=== PATIENT | female | born 2000 | race Caucasian/White ===

== ENCOUNTER 2023-10-18 06:36 | Day surgery (SDC) | payer OTHER, SELFPAY ==
[2023-10-17 11:51] VITALS: BMI 31.6
[2023-10-18 06:55] VITALS: BP 125/76; PULSE 90; RESP 16; TEMP 36.4; O2SAT 96; BMI 31.6
[2023-10-18] MEDS: LACTATED RINGERS 1,000 ML 42 ML IV (06:58)
--- NOTE | 2023-10-18 07:29 | SUR.PREOP ---
heart tones 124. Assessed by L&D Nursing staff at bedside.
--- NOTE | 2023-10-18 07:30 | SUR.OPER ---
Lithotomy on padded OR bed, head on pillow, arms secured on padded arm boards at <90 degrees abduction. Legs secured in padded yellow fins stirrups.
--- NOTE | 2023-10-18 07:35 | PM.PREOP ---
Pre-operative Note COVID-19 COVID-19 status: Not tested Interval Note History & Physical reviewed/Exam performed by Physician: Yes Changes to H&P: No
[2023-10-18] MEDS: CEFAZOLIN 2 GM/100 ML PREMIX 100 ML IV (07:56)
[2023-10-18] MEDS: BUPIVACAINE 0.5% (PF) 30 ML, EPINEPHrine 0.15 MG INJ (08:21)
[2023-10-18 08:57] VITALS: BP 97/60; PULSE 88; RESP 16; TEMP 36.8; O2SAT 98
[2023-10-18 09:06] VITALS: BP 97/61; PULSE 73; RESP 15; O2SAT 98
[2023-10-18 09:09] VITALS: BP 103/73; PULSE 78; RESP 16; O2SAT 98
[2023-10-18 09:11] VITALS: BP 103/73; PULSE 80; RESP 16; TEMP 36.2; O2SAT 98
--- NOTE | 2023-10-18 09:15 | P.OP_ITS ---
Operative Date/Time/Diagnoses Date of procedure: 10/18/23 Time of procedure: 07:50 Pre-op diagnosis: Right Bartholin's gland abscess Post-op diagnosis: other (Right perianal abscess) Procedure & Clinicians Procedure: Procedures Operation Date: 10/18/23 07:45 Actual Procedure Side Surgeon p Incision and drainage of right perianal abscess Yung Loyd MD Indications: Rhina is a 23 yo at @ 12 wks EGA who was seen earlier this week regarding her right-sided Bartholin's gland cyst/abscess. Patient has had prior attempts at I and D in the emergency department and Word catheter insertion in office which remain in place for only 1 day following insertion. Since then she has had another attempt at I and D which was unsuccessful and presents today for further evaluation and treatment as the cyst is enlarging and becoming increasingly painful. After discussion with the patient regarding all options for further evaluation and treatment of the Bartholin's gland abscess, the decision was made to perform marsupialization in the operating room rather than attempt another in-office Word catheter placement. She presents today for her scheduled surgery. Surgeon: Yung Loyd Anesthesia Type: General Operative Notes Findings: What was thought to be a Bartholin's gland abscess on the right side was actually a perianal/perirectal abscess which pointed toward the inferior aspect of the right labia majora. Exam under anesthesia following drainage of the abscess cavity revealed extensive induration deep to the abscess creating a masslike effect and on rectal exam purulent material was found to be coming from the rectum as well. General surgery consult was obtained intraoperatively and the patient was examined by Dr. Ervin daugherty with the diagnosis of perianal/perirectal abscess. The abscess cavity was fully drained and loosely packed with a 1/2 inch iodoform gauze. Closure Type: not applicable Specimen(s): other (Culture and sensitivity of purulent abscess fluid) Estimated blood loss (mL): 20 Blood products transfused: none Procedure in detail: With the patient under satisfactory general anesthesia in the modified dorsal lithotomy position the perineum, vagina, lower abdomen were prepped and draped in usual manner for Bartholin's gland marsupialization. The area overlying the most superficial aspect of the abscess was infiltrated with 0.5% Marcaine with epinephrine and an elliptical incision was made so as to unroof the abscess cavity itself. Once that had been performed, the cavity was incised with a 11. Blade resulting in the drainage of a large amount of necro-purulent material. Because the abscess cavity was atypical for Bartholin's gland rectal exam was performed which showed additional amounts of necro-purulent material and intraoperative surgical consult was obtained. Dr. Ervin Aguilar examined the patient under anesthesia and confirmed the diagnosis of a perianal/perirectal abscess. Half-inch iodoform gauze was then packed into the abscess cavity and 2 3-0 Monocryl interrupteds were used to reduce the size of the incision to less than 1 cm. The operation was then terminated by waking the patient and transfer the patient to PACU for a period of observation and recovery having tolerated procedure well. Complications: other (Preop diagnosis found to be incorrect at time of surgery) Post-operative Condition: stable Disposition: PACU Plan for aftercare: Routine postoperative care with plans for General surgery follow-up in 1 week postop and follow-up with LATHE MACHINE OPERATOR in 2 weeks.
[2023-10-18 09:21] VITALS: BP 100/65; PULSE 78; RESP 16; TEMP 36.6; O2SAT 98
--- NOTE | 2023-10-18 10:13 | SUR.PHASEII ---
PATIENT BLADDER SCANNED FOR 877. STRAIGHT CATH FOR 850 PER PHYSICIAN ORDER. PATIENT TOLERATED PROCEDURE WELL.
== END 2023-10-18 10:15 | disposition home or self-care (01) ==
PROVIDERS: PCP Family Medicine; Referring Provider Obstetrics & Gynecology; Visit Provider Obstetrics & Gynecology
PROC: (CPT 56440; principal; 2023-10-18 07:45)
DX: K61.1 Rectal abscess (principal); Z33.1 Pregnant state, incidental
CPT/HCPCS: 45005; 87070; 87077; 87147; 87186; 87205; J0171; J0690; J1100; J1885; J2405; J2704; J3010

== ENCOUNTER → 2023-12-11 15:17 | Outpatient (CLI) | payer OTHER, SELFPAY ==
--- NOTE | 2023-12-11 | DI.US.S_ITS ---
PROCEDURE: US OB >= 14 WEEKS FETUS INDICATIONS: ANATOMY OUTSIDE/PRIOR DATING DATA: Last menstrual period (LMP): 06/19/2023. LMP-based estimated date of delivery (EFREM): 04/25/2024. First dating scan (date and location): 12/11/2023. Estimated date of delivery (EFREM) from first dating scan: 04/23/2024. The calculations are made using the clinical EFREM of 04/25/2024. TECHNIQUE: Real-time scanning was performed of the fetus, with image documentation and biometric measurements. COMPARISON: None. FINDINGS: General: A single living intrauterine gestation is present. Presentation: Breech. Placenta: Placental position is posterior , without previa. Amniotic fluid index: 15.4 cm, normal range is 5-24 cm. Single deepest vertical pocket is 5.2 cm. heart rate: 147 beats per minute. Maternal cervical canal: 4.5 cm long. Normal lower limit is 2.5 cm. biometrics: Biparietal diameter: 4.9 cm 20 weeks 5 days Head circumference: 17.9 cm 20 weeks 3 days Abdominal circumference: 16.0 cm 21 weeks 1 day Femur length: 3.6 cm 21 weeks 2 days Clinically estimated gestational age: 20 weeks 4 days Composite gestational age from present scan: 20 weeks 6 days Estimated weight and percentile: 400 g, 75th percentile Anatomic survey: Neuro: Ventricles are non-dilated at less than 10 mm. Cisterna magna is normal at 3-11 mm. Cerebellum is normal in size and morphology. Nuchal skin fold: Normal at less than 6 mm between 14-21 weeks gestational age. Face: Nose and lips, facial profile are normal. Spine: No evidence for spina bifida. Heart: 4-chambered heart and ventricular outflow tracts are suboptimally evaluated. Diaphragm: Diaphragm is intact. Stomach: Left-sided stomach is present. Kidneys: No hydronephrosis. Normal is less than 5 mm in 2nd trimester, less than 7 mm in 3rd trimester. Cord: 3-vessel cord has orthotopic insertion. Bladder: Normal in size. Extremities: All 4 extremities identified. IMPRESSION: Single live intrauterine with gestational age today of 20 weeks 6 days. 4 chambered heart/outflow tracts are suboptimally evaluated. Recommend short interval imaging follow-up. We strive to produce accurate, complete, and clear reports of imaging services. To assist us in improving patient care, this report was composed using standard report templates and voice recognition software. Therefore, it may contain abnormal punctuation, insertions and/or omissions. Occasional wrong-word or sound-alike substitutions may occur. Though we review the report and make efforts to correct it, we do recommend that the report be read carefully in proper context to recognize any text inaccuracies. Dictated by: Susy Bowers M.D. on 12/12/2023 at 13:29 Approved by: Susy Bowers M.D. on 12/12/2023 at 13:32
== END ==
LOC: US 15:17
PROVIDERS: PCP Family Medicine; Referring Provider Nurse Practitioner Obstetrics & Gynecology; Visit Provider Nurse Practitioner Obstetrics & Gynecology
DX: Z34.92 Encounter for supervision of normal pregnancy, unspecified, second trimester (principal); Z3A.20 20 weeks gestation of pregnancy
CPT/HCPCS: 76811

== ENCOUNTER → 2023-12-28 16:14 | Outpatient (CLI) | payer OTHER, SELFPAY ==
--- NOTE | 2023-12-28 16:15 | DI.US.S_ITS ---
PROCEDURE: US OB FOLLOW UP INDICATIONS: FOLLOW UP ANATOMY SCAN OUTSIDE/PRIOR DATING DATA: Last menstrual period (LMP): 07/20/2023. LMP-based estimated date of delivery (EFREM): 04/25/2024. Working EFREM is 04/25/2024 TECHNIQUE: Real-time scanning was performed of the fetus, with image documentation. COMPARISON: [facility], US, OB >= 14 WEEKS FETUS, 12/11/2023, 15:44. FINDINGS: A single living intrauterine gestation is present. Presentation: Variable. Placenta: Placental position is posterior, without previa. Amniotic fluid index: 14.4 cm, normal range is 5-24 cm. Single deepest vertical pocket is 4.5 cm. heart rate: 125 beats per minute. Maternal cervical canal: 4.7 cm long. Normal lower limit is 2.5 cm. Current gestational age is 23 weeks based on working EFREM The heart remains suboptimally visualized due to body habitus. There is no gross abnormality identified. IMPRESSION: cardiac structures remain suboptimally visualized due to body habitus. No gross abnormality is detected. Normal JACEY. Living intrauterine gestation at 23 weeks. Dictated by: Ridge Centeno M.D. on 12/29/2023 at 11:07 Approved by: Ridge Centeno M.D. on 12/29/2023 at 11:10
== END ==
PROVIDERS: PCP Family Medicine; Referring Provider Advanced Practice Midwife; Visit Provider Advanced Practice Midwife
DX: Z34.92 Encounter for supervision of normal pregnancy, unspecified, second trimester (principal); Z3A.23 23 weeks gestation of pregnancy
CPT/HCPCS: 76816

== ENCOUNTER 2024-01-21 05:10 | Emergency (ER) | payer OTHER, SELFPAY ==
[2024-01-21 05:20] VITALS: BP 116/65; PULSE 89; RESP 18; TEMP 36.6; O2SAT 100; BMI 32.1
--- NOTE | 2024-01-21 05:57 | ED_ITS ---
HPI - General Adult General Chief complaint: Upper Respiratory Symptoms Stated complaint: chest, back and arm pain Time Seen by Provider: 01/21/24 05:55 Source: patient Mode of arrival: Ambulatory Limitations: no limitations History of Present Illness HPI narrative: This is a 23-year-old female who is 26 week and 3 days with history of hypothyroidism who presents with nasal congestion, cough, for the past several days. Patient states she woke up this morning felt a little tight in her chest in her arms just felt really tired. She states she does not have any shortness of breath. No syncope. No nausea or vomiting, no diarrhea constipation no urinary symptoms she has not had any increased swelling in extremities. She did take a Tums without any improvement of symptoms. She states no fevers that she is aware of. She is otherwise been healthy with no other complications in her . She denies any abdominal pain. She states she has been feeling baby move regularly. Patient is on aspirin daily for her . She states no prior surgeries. No known drug allergies. No tobacco, alcohol or recreational drugs. She is accompanied by her . Related Data Home Medications Medication Instructions Recorded Confirmed levothyroxine 50 mcg capsule 50 mcg PO .qod 10/13/21 12/19/23 levothyroxine 75 mcg capsule 75 mcg PO .qod 10/13/21 12/19/23 clindamycin phosphate 1 % lotion 1 applic topical BID 12/04/23 12/19/23 Allergies Allergy/AdvReac Type Severity Reaction Status Date / Time No Known Drug Allergies Allergy Verified 12/19/23 16:15 Review of Systems Review of Systems ROS Unobtainable: All systems reviewed & are unremarkable except as noted in HPI and below Patient History Medical History History of atypical skin mole Rosacea (~2011) Acne (~2011) Allergies Hemorrhoid (~2015) Anxiety (~2013) Shoulder pain (~2013) Foot pain (~2017) Hypothyroidism (~2015) Surgical History Perianal abscess (~2023) Anesthesia [place] teeth removed (~06/2019) Family History Mother COPD (chronic obstructive pulmonary disease) Mental health problem Sister Sleep apnea Social History household members: spouse Smoking Status: Never smoker Smoking Status: Never smoker alcohol intake frequency: holidays/special occasions only Substance Use Type: does not use Exam Narrative Exam Narrative: GEN: well nourished, well appearing female, alert and oriented x 3, patient appears to be in mild distress. HEENT: Atraumatic, pupils are equal round reactive to light, extraocular movements are intact, nares bilateral clear, TMs are clear with no fluid, tract bilaterally, there is no conjunctival pallor. Throat is clear without any exudates, erythema, tonsillar enlargement or uvular deviation, patient does have some postnasal drip. HEART: Regular rate and rhythm without murmur, clicks, rubs. No swelling bilateral upper extremities. LUNGS:Lungs clear to auscultation, no wheezes, rales, crackles, chest moves symmetrically ABD:bowel sounds normal, soft, gravid, non-tender, no guarding, rebound, rigidity, no masses noted, no hepatosplenomegaly :No CVA tenderness MSCL: Non-tender, no edema bilaterally, full range of motion, normal gait NEURO:CN 2-12 intact, sensation normal Initial Vital Signs Initial Vital Signs: Vital Signs Temperature 98 F 01/21/24 05:20 Pulse Rate 89 01/21/24 05:20 Respiratory Rate 18 01/21/24 05:20 Blood Pressure 116/65 01/21/24 05:20 Pulse Oximetry 100 01/21/24 05:20 Oxygen Delivery Method Room Air 01/21/24 05:20 Course Orders Ordered: Discontinued Medications Acetaminophen (Acetaminophen 325 Mg Tablet) 650 mg PO NOW ONE Stop: 01/21/24 06:18 Last Admin: 01/21/24 06:37 Dose: Not Given Documented By: GENNARO Sodium Chloride (Normal Saline 0.9%) 1,000 mls @ 1,000 mls/hr IV BOLUS ONE Stop: 01/21/24 07:16 Last Admin: 01/21/24 06:38 Dose: Not Given Documented By: GENNARO Vital Signs Vital signs: Vital Signs - 8 hr 01/21/24 05:20 Temperature 98 F Pulse Rate 89 Respiratory Rate 18 Blood Pressure 116/65 Pulse Oximetry 100 Oxygen Delivery Method Room Air Medical Decision Making Lab Data Labs: Lab Results 01/21/24 Range/Units 05:24 Chlamy pneumoniae PCR Not detected (Not Detect) Adenovirus (PCR) Not detected (Not Detect) B.parapertussis DNA PCR Not detected (Not Detecte) Coronavirus OC43 (PCR) Not detected (Not Detect) Coronavirus HKU1 (PCR) Not detected (Not Detect) Coronavirus 229E (PCR) Not detected (Not Detect) SARS-CoV-2 (PCR) Not detected (Not Detecte) Coronavirus NL63 (PCR) Not detected (Not Detect) Human Metapneumovir PCR Detected H (Not Detect) Influenza Type A (PCR) Not detected (Not Detect) Influenza Type B (PCR) Not detected (Not Detect) M. pneumoniae (PCR) Not detected (Not Detect) Parainfluenza 1 (PCR) Not detected (Not Detect) Parainfluenza 2 (PCR) Not detected (Not Detect) Parainfluenza 3 (PCR) Not detected (Not Detect) Parainfluenza 4 (PCR) Not detected (Not Detect) RSV (PCR) Not detected (Not Detect) Entero/Rhino (PCR) Not detected (Not Detect) MDM Narrative Medical decision making narrative: 23-year-old female with symptoms seem most consistent with viral upper respiratory infection who is , but patient did develop some chest tightness discomfort today. Her lung exam is clear with no crackles wheezes or rales. She does sound congested nasally. Patient does not have any reproducible chest pain. Initial vitals are appropriate, no hypertension. She is some increased risk factors secondary to I think this is likely related to her infection but after discussion we will proceed with chest x-ray but shielding, EKG labs and respiratory panel. Patient's respiratory panel is positive for human metapneumovirus. Patient after this return would like to hold off on further workup. We discussed risks versus benefits. This is likely secondary to viral infection but did discuss she has some increased risks. Patient elects to return home discussed she can return at any time for re-evaluation. Discharge Plan Departure Patient Disposition: Home Clinical Impression: Infection due to human metapneumovirus (hMPV) Activity Restrictions/Additional Instructions: You have tested positive for human metapneumovirus, this is a viral illness that typically last 7-10 days. You can take Tylenol up to a 1000 mg every 6 hours as needed for pain. You have new or worsening chest pain, shortness of breath, lightheadedness or passing out, new swelling in her extremities, persistent vomiting, new abdominal back or flank pain or other new or concerning changes please return for evaluation. Prescriptions: No Action clindamycin phosphate 1 % lotion 1 applic topical BID levothyroxine 50 mcg capsule 50 mcg PO .qod levothyroxine 75 mcg capsule 75 mcg PO .qod Referrals: Helga Pereira DO [Primary Care Provider] - Stand Alone Forms: Patient Portal/API
[2024-01-21 06:16] LABS: Adenovirus Not Detected (Not Detect); B. parapertussis Not Detected (Not Detecte); Bordetella pertussis Not Detected (Not Detect); Chlamydophila pneumoniae Not Detected (Not Detect); Coronavirus 229E Not Detected (Not Detect); Coronavirus HKU1 Not Detected (Not Detect); Coronavirus NL 63 Not Detected (Not Detect); Coronavirus OC43 Not Detected (Not Detect); Human Metapneumovirus Detected (Not Detect); Human Rhinovirus/Enterovirus Not Detected (Not Detect); Influenza A Not Detected (Not Detect); Influenza B Not Detected (Not Detect); Mycoplasma pneumoniae Not Detected (Not Detect); Parainfluenza Virus 1 Not Detected (Not Detect); Parainfluenza Virus 2 Not Detected (Not Detect); Parainfluenza Virus 3 Not Detected (Not Detect); Parainfluenza Virus 4 Not Detected (Not Detect); Respiratory Syncytial Virus Not Detected (Not Detect); SARS- CoV-2 Not Detected (Not Detecte)
[2024-01-21 06:44] VITALS: BP 110/66; PULSE 76; RESP 16; O2SAT 100
== END 2024-01-21 06:47 | disposition home or self-care (01) ==
PROVIDERS: Emergency Provider Emergency Medicine; PCP Family Medicine
DX: O98.512 Other viral diseases complicating pregnancy, second trimester (principal); B97.81 Human metapneumovirus as the cause of diseases classified elsewhere; Z3A.26 26 weeks gestation of pregnancy
CPT/HCPCS: 87633; 99282; 99283

== ENCOUNTER → 2024-02-04 08:31 | Outpatient (CLI) | payer OTHER, SELFPAY ==
[2024-02-04 09:33] LABS: Glucose Fasting 81 mg/dL (70-100)
[2024-02-04 10:58] LABS: Glucose 1 Hour 124 mg/dL (70-170)
[2024-02-04 11:32] LABS: Glucose 2 Hour 96 mg/dL (70-140)
[2024-02-04 11:34] LABS: Glucose Tol Interpretation INTERPRETATION
[2024-02-04 12:21] LABS: Glucose 3 Hour 103 mg/dL (70-115)
== END ==
LOC: LAB 08:32
PROVIDERS: PCP Family Medicine; Referring Provider Nurse Practitioner Obstetrics & Gynecology; Visit Provider Nurse Practitioner Obstetrics & Gynecology
DX: Z34.90 Encounter for supervision of normal pregnancy, unspecified, unspecified trimester (principal); Z13.1 Encounter for screening for diabetes mellitus; Z3A.26 26 weeks gestation of pregnancy
CPT/HCPCS: 36415; 82951; 82952

== ENCOUNTER 2024-05-02 15:24 | Outpatient (CLI) | payer OTHER, SELFPAY ==
--- NOTE | 2024-05-02 15:34 | DI.US.S_ITS ---
PROCEDURE: US OB BIOPHYSICAL PROFILE INDICATIONS: Non-reasurring FHTs OUTSIDE/PRIOR DATING DATA: Last menstrual period (LMP): 07/20/2023. LMP-based estimated date of delivery (EFREM): 04/25/2024. TECHNIQUE: Real-time scanning was performed of the fetus for biophysical profile, with image documentation. Color and pulse Doppler interrogation was also performed of the umbilical artery near its insertion into the placenta. Endovaginal scanning: Not performed COMPARISON: Located within [facility], OB FOLLOW UP, 12/28/2023, 16:50. FINDINGS: General: A single living intrauterine gestation is present. Presentation: Vertex Placenta: Placental position is left/fundal , without previa. Amniotic fluid index: 16.4 cm, normal range is 5-24 cm. Single deepest vertical pocket is 6.9 cm. heart rate: 139 beats per minute. Maternal cervical canal: Not well seen Clinically estimated gestational age: 41 weeks, 0 days Biophysical profile: Tone: 2 points. Movement: 2 points. Respiration: 2 points. Largest pocket of fluid: 2 points. Umbilical artery Doppler: 1.9, 2.0, 2.0 IMPRESSION: Single live intrauterine consistent with 41 weeks and 0 days. Normal biophysical profile. Normal umbilical artery Doppler. We strive to produce accurate, complete, and clear reports of imaging services. To assist us in improving patient care, this report was composed using standard report templates and voice recognition software. Therefore, it may contain abnormal punctuation, insertions and/or omissions. Occasional wrong-word or sound-alike substitutions may occur. Though we review the report and make efforts to correct it, we do recommend that the report be read carefully in proper context to recognize any text inaccuracies. Dictated by: Mack Gonzalez M.D. on 05/02/2024 at 16:35 Approved by: Mack Gonzalez M.D. on 05/02/2024 at 16:38
== END 2024-05-02 16:25 | disposition home or self-care (01) ==
LOC: OB 05-05 06:38
PROVIDERS: PCP Family Medicine; Referring Provider Nurse Practitioner Obstetrics & Gynecology; Visit Provider Nurse Practitioner Obstetrics & Gynecology
DX: O36.8130 Decreased fetal movements, third trimester, not applicable or unspecified (principal); O48.0 Post-term pregnancy; Z3A.41 41 weeks gestation of pregnancy
CPT/HCPCS: 59025; 76819; G0378; G0379

== ENCOUNTER 2024-05-04 02:02 | Inpatient (IN) | payer OTHER, SELFPAY ==
--- NOTE | 2024-05-04 02:37 | PM.OBTRLD ---
Visit Information Visit Information Date of evaluation: 05/04/24 Primary OB Provider: Dina Burgess On-call OB Provider: Dina Burgess Reason for Evaluation: Yes rupture of membranes Comments/Additional reasons for admission: 24YO @ 41weeks 2 days by sure LMP concordant with 10wk US presents for evaluation of contractions and suspected ROM. Has been feeling irregular contractions all night and noticed occasional small gushes of fluid since 10pm. +FM. No vaginal bleeding. Coping well. 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 Accompanied by her supportive , Jose. Vital Signs Vital Signs: BP 113/66, HR 74, T 35.8C Temporal PFSH Medical History History of atypical skin mole Rosacea (~2011) Acne (~2011) Allergies Hemorrhoid (~2015) Anxiety (~2013) Shoulder pain (~2013) Foot pain (~2017) Hypothyroidism (~2015) Surgical History Perianal abscess (~2023) Anesthesia [place] teeth removed (~06/2019) Family History Mother COPD (chronic obstructive pulmonary disease) Mental health problem Sister Sleep apnea Social History household members: spouse Smoking Status: Never smoker Review of Systems Review of Systems ROS: Yes All systems reviewed with the patient and are negative except as otherwise documented Exam Vital Signs (past 8 hours): see above Presentation: vertex Amniotic Fluid: clear Evaluation Evaluation Baseline heart rate: 125 Variability: Moderate (11-25) monitor accelerations: Present Monitor Decelerations: Absent Contraction Frequency (minutes): 8 Non-invasive Membranes Rupture Test: positive Comments: CE deferred Diagnosis, Plan/Disposition Final Diagnosis (1) PROM (premature rupture of membranes): Status: Acute Plan/Disposition Plan: Counseled on PROM and options for active vs expectant management with review of risks and benefits of each. Patient elected expectant management and agrees to check in around 10am (ROM x 12 hours) by phone or sooner, if contractions strengthen. OB Disposition: home
--- NOTE | 2024-05-04 06:58 | P.HPOB_ITS ---
OB HPI Date/Time Date of admission: 05/04/24 Date Patient Seen: 05/04/24 History of Present Condition Chief complaint: check up/poss water broke : 1 Para: 0 Narrative: 24YO @ 41weeks 2 days by sure LMP concordant with 10wk US presents for repeat evaluation of contractions w/ PROM @ 2200 last night. Was seen in triage last night with confirmed ROM and reactive NST. She elected expectant management of PROM and went home where things intensified quickly. +FM. No vaginal bleeding. Coping well. 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 Accompanied by her supportive , Jose. History of Present care: good care, initiated at week # (6) and number of visits (13) Dating criteria: LMP confirmed by 1st trimester US Ultrasounds: normal mid trimester US Obstetrical complications: none Medical complications: other (perianal fistula) Preadmission Labs Blood type: 0 (-) negative -: Antibody screen: negative, GBS status: negative, HBsAG: negative, HIV: negative and RPR/VDLR: negative -: Chlamydia screen: not detected and Gonorrhea screen: not detected -: Rubella: immune and Varicella: immune HCT: 34 HCAB: negative Cell-free DNA: Negative, XY 1 hr GTT: 152 3 hr GTT: 1 hr (124), 2 hr (96) and 3 hr (123) Fasting blood glucose: 81 Evaluation Evaluation Baseline heart rate: 125 Variability: Moderate (11-25) monitor accelerations: Absent Monitor Decelerations: Early and Variable Contraction Frequency (minutes): 2 (2-3) Uterine Contraction Intensity: Strong/Firm Status: Category ll Dilation (cm): 5 Effacement (%): 90 Dilation: >/=5 cm Effacement: >/=80% station: -1 Position of cervix: posterior Consistency: soft Peña score: 10 Comments: Continues to leak clear fluid [facility] Medical History History of atypical skin mole Rosacea (~2011) Acne (~2011) Allergies Hemorrhoid (~2015) Anxiety (~2013) Shoulder pain (~2013) Foot pain (~2018) Hypothyroidism (~2015) Surgical History Perianal abscess (~2023) Anesthesia [place] teeth removed (~06/2019) Family History Mother COPD (chronic obstructive pulmonary disease) Mental health problem Sister Sleep apnea Social History household members: spouse Smoking Status: Never smoker Meds Home Medications and Allergies Home Medications Medication Instructions Recorded Confirmed Type levothyroxine 75 mcg capsule 75 mcg PO .qod 10/13/21 05/04/24 History clindamycin phosphate 1 % lotion 1 applic topical BID 12/04/23 05/04/24 History Allergies Allergy/AdvReac Type Severity Reaction Status Date / Time No Known Drug Allergies Allergy Verified 12/19/23 16:15 Review of Systems Review of Systems ROS: Yes All systems reviewed with the patient and are negative except as otherwise documented OB Exam Resp Effort & Inspection: normal respiratory effort and able to speak in complete sentences Auscultation: clear to auscultation bilaterally Cardio Rate: regular rate Rhythm: regular rhythm Presentation: vertex Amniotic Fluid: clear Objective Labs 05/04/24 07:50 Assessment and Plan Assessment and Plan Assessment and Plan narrative: A: Late Term Nulipara Active Labor SROM x 9 hours without sx of infection Antibiotics not indicated Perianal fistula Cat II FHR P: Admit, routine orders. Expectant management of labor. Labor support PRN. Continuous EFM for now. Reassess in 4 hours or sooner, PRN. Time-Based Coding :: [TOTAL MINUTES] spent with patient and on the chart (including review of chart, obtaining history, exam, reviewing outside data, placing orders, documenting exam and treatment plan, and counseling patient) on [DATE].
[2024-05-04] MEDS: LACTATED RINGERS 1,000 ML 100 ML IV ×3 (08:00→17:43)
[2024-05-04 08:05] LABS: Add Manual Diff / Slide Review NO; Basophils Absolute Auto 100 /uL (0-100); Basophils Percent Auto 0.6 % (0-2); Eosinophils Absolute Auto 100 /uL (0-450); Eosinophils Percent Auto 0.9 % (2-4); Hematocrit 37.8 % (36-46); Hemoglobin 13.1 g/dL (12.0-16.0); Lymphocytes Absolute Auto 1200 /uL (1100-4500); Lymphocytes Percent Auto 10.9 % (25-40); Mean Corpuscular HGB Conc 34.7 % (30-36); Mean Corpuscular Hemoglobin 32.6 PG (26-34); Monocytes Absolute Auto 600 /uL (0-900); Monocytes Percent Auto 5.7 % (3-14); Neutrophils Absolute Auto 8700 /uL (1500-7000); Neutrophils Percent Auto 81.9 % (50-75); Platelet Count 205 X10^3/uL (150-400); Red Blood Cell Count 4.02 X10^6/uL (4.0-5.2); Red Cell Distribution Width 13.6 % (11.6-14.8); White Blood Cell Count 10.6 X10^3/uL (4.5-11.0)
--- NOTE | 2024-05-04 09:22 | PM.AN.REGBLK ---
Regional Block Pre-procedure Procedure: Continuous Lumbar Epidural for L&D Attending OB provider: Dina Burgess PMH/ROS narrative: G1PO. Spontaneous labor, dil 5cm, membranes ruptured. PSH/Anesthesia history narrative: Unremarkable Exam narrative: Mall 2, good dentition ASA Class: II Labs: Hct 37.8 % (36-46) 05/04/24 07:50 Plt Count 205 X10^3/uL (150-400) 05/04/24 07:50 Medications: Current Medications Generic Name Dose Route Start Last Admin Trade Name Freq PRN Reason Stop Dose Admin Calcium Carbonate 1,000 mg 05/04/24 06:55 Calcium Carbonate 500 Mg Tab PO Q2HR PRN Dyspepsia Carboprost Tromethamine 250 mcg 05/04/24 06:55 Carboprost 250 Mcg/Ml Ampul IM Q90M PRN Bleeding Fentanyl 100 mcg 05/04/24 06:55 Fentanyl 100 Mcg/2 Ml Inj IV Q1H PRN Pain, Severe (7-10) Lactated Ringer's 1,000 mls @ 100 mls/hr 05/04/24 07:00 Lactated Ringers IV 05/04/24 16:59 CONT FREYA Oxytocin/Lactated Ringer's 30 unit in 500 mls @ 200 mls/hr 05/04/24 06:55 Oxytocin Premix IV CONT PRN Bleeding Protocol Tranexamic Acid 1,000 mg/ 100 mls @ 600 mls/hr 05/04/24 06:55 Sodium Chloride IV NOW PRN Bleeding Lidocaine HCl 20 ml 05/04/24 06:55 Lidocaine 1% 20 Ml INJ INTRA-OP PRN Post Delivery Methylergonovine Maleate 0.2 mg 05/04/24 06:55 Methylergonovine 0.2 Mg Tablet PO Q6HR PRN Heavy Bleeding Methylergonovine Maleate 0.2 mg 05/04/24 06:55 Methylergonovine 0.2 Mg/Ml Vial IM NOW PRN Bleeding Mineral Oil 30 ml 05/04/24 06:55 Mineral Oil 30 Ml Udc TOP PRN PRN Version Misoprostol 800 mcg 05/04/24 06:55 Misoprostol 200 Mcg Tablet NE NOW PRN Bleeding Misoprostol 400 mcg 05/04/24 06:55 Misoprostol 200 Mcg Tablet SL NOW PRN Bleeding Naloxone HCl 0.2 mg 05/04/24 06:55 Naloxone 0.4 Mg/Ml Vial IV Q2MIN PRN Opiate Reversal Ondansetron HCl 4 mg 05/04/24 06:55 Ondansetron 4 Mg/2 Ml Inj IV Q4HR PRN Nausea And Vomiting Oxytocin 10 unit 05/04/24 06:55 Oxytocin 10 Unit/Ml Vial IM NOW PRN Bleeding Allergies: Allergies Allergy/AdvReac Type Severity Reaction Status Date / Time No Known Drug Allergies Allergy Verified 12/19/23 16:15 Procedure Insertion date: 05/04/24 Insertion time: 08:12 Prep/Local: 1% lidocaine Interspace: L4-5 Patient position: sitting Needle: 17 gauge Tuohy Loss of resistance with: saline FARNAZ at (cm): 7 Catheter placed at SKIN (cm): 14 Catheter in SPACE (cm): 7 Sensory level: T10 Insertion: No CSF, No Blood, No Paresthesia with insertion, No Paresthesia with injection and No Test dose reaction Initial Medications TEST DOSE time: 08:17 BOLUS DOSE time: 08:27 BOLUS DOSE (mL): 5 BOLUS DOSE med: other (Pump solution) Infusion INFUSION: 0.125% bupivacaine and with fentanyl 2 mcg/mL Initial rate (mL/hr): 10 Subsequent interventions: 1630- called to bedside by RN, RLQ less comfortable, on all fours, patient dilated to 9cm. Position changed, Lido 2% 10cc bolus via epidural. 1840- Check in at bedside, patient fully dilated, laying flat. Position changed, Lido 2% 10cc bolus via epidural. Post-procedure Anesthesia date START: 05/04/24 Anesthesia time START: 08:12 Anesthesia date END: 05/04/24 Anesthesia time END: 21:45 Post-procedure Anesthesia Assessment: Yes CV function: HR/BP stable, Yes Resp function: RR/sat/airway adequate, Yes Post-op hydration adequate, Yes Pain control adequate, Yes Nausea & vomiting absent, Yes Temperature > 36 C, Yes Mental status appropriate and Yes Anesthesia complications
[2024-05-04 09:51] VITALS: BP 118/65
--- NOTE | 2024-05-04 10:45 | PM.OBPNLAB ---
Date/Time Date Patient Seen: 05/04/24 Time Patient Seen: 10:35 Pain Control Comments: Patient labored upright in her room for a while before requesting an epidural. Epidural was placed with good pain relief. She has been resting comfortably since placement. Continues to leak clear fluid. Partner is supportive at her side. VS: BP 105/70, HR 88bpm, T 98.7F Oral Pelvic Exam Dilation (cm): 7 Effacement (%): 90 station: -1 Amniotic membrane status: Leaking Contractions Monitor mode: External Contraction frequency (min): 3 Contraction duration (min): 1 Contraction pattern: Regular Contraction intensity: Strong/Firm Status status: Category ll Heart Rate Baseline: 135 Monitor Accelerations: Present Monitor Decelerations: Variable Monitor Variability: Moderate Assessment and Plan Assessment: active labor (Cat II FHR- overall reassuring) Plan: continuous present management Comments: Reassess in 4 hours or sooner, PRN.
--- NOTE | 2024-05-04 13:55 | PM.OBPNLAB ---
Date/Time Date Patient Seen: 05/04/24 Time Patient Seen: 13:50 Pain Control Comments: Epidural continues to provide adequate comfort. Supportive family and partner at her side. BP 110/64, HR 85, 98.8F Oral, RR 16 Pelvic Exam Dilation (cm): 8 Effacement (%): 90 station: -1 Amniotic membrane status: Leaking Contractions Monitor mode: External Contraction frequency (min): 3 (2-4mins) Contraction duration (min): 2 (1-2 mins) Contraction pattern: Regular Contraction intensity: Strong/Firm Status status: Category ll Heart Rate Baseline: 135 Monitor Accelerations: Present Monitor Decelerations: Variable Monitor Variability: Moderate Assessment and Plan Assessment: active labor (SROM x 17 hours without sx of infection) Plan: continuous present management Comments: Continue expectant management. Anticipate 2nd stage soon. Reassess in 4 hours or sooner, PRN.
[2024-05-04] MEDS: FENT 2MCG/ML BUPIV 0.125% EPI 200 MCG/100 ML PLAST..BAG 10 MCG EPIDURAL (17:43)
--- NOTE | 2024-05-04 18:08 | PM.OBPNLAB ---
Date/Time Date Patient Seen: 05/04/24 Time Patient Seen: 17:30 Pain Control Pain control: epidural Comments: Christi is feeling persistent RLQ pain despite position changes, working with anesthesia to achieve better pain relief. Feeling tired and frustrated with decreased coping. Intermittent straight catheterization for bladder management. Frequent position change with pillows for support. Supportive family and partner at bedside. BP: 120/57, HR 82, 98.8F Oral Pelvic Exam Dilation (cm): 9 (9 with lip) Effacement (%): 90 station: -1 Amniotic membrane status: Leaking Contractions Monitor mode: External Contraction frequency (min): 3 (2-4mins) Contraction duration (min): 1 Contraction pattern: Regular Contraction intensity: Strong/Firm Status status: Category ll Heart Rate Baseline: 145 Monitor Accelerations: Present Monitor Decelerations: Late, Prolonged (single - resolved with position change and IV fluid bolus) and Variable Monitor Variability: Moderate Comments: straight cath by CNM for 350mL clear yellow urine immediately prior to CE. Assessment and Plan Assessment: active labor (SROM x 20 hours without sx of infection, Cat II FHR) Plan: continuous present management Comments: Continue position changes for FHR management. Standing by to begin second stage soon or consult OB PRN FHR if no labor progress.
[2024-05-04 21:31] LABS: Add Manual Diff / Slide Review NO; Basophils Absolute Auto 0 /uL (0-100); Basophils Percent Auto 0.1 % (0-2); Eosinophils Absolute Auto 0 /uL (0-450); Eosinophils Percent Auto 0.1 % (2-4); Hematocrit 35.5 % (36-46); Lymphocytes Absolute Auto 1100 /uL (1100-4500); Lymphocytes Percent Auto 7.5 % (25-40); Mean Corpuscular HGB Conc 33.8 % (30-36); Mean Corpuscular Hemoglobin 32.1 PG (26-34); Mean Corpuscular Volume 94.9 fL (80-100); Monocytes Absolute Auto 700 /uL (0-900); Monocytes Percent Auto 4.8 % (3-14); Neutrophils Absolute Auto 13100 /uL (1500-7000); Neutrophils Percent Auto 87.5 % (50-75); Platelet Count 192 X10^3/uL (150-400); Red Blood Cell Count 3.74 X10^6/uL (4.0-5.2); Red Cell Distribution Width 13.5 % (11.6-14.8)
--- NOTE | 2024-05-04 22:34 | PM.OBPRVD ---
Events: Premature Rupture Membrane Labor & Delivery Delivery date: 05/04/24 Intrapartal Events: None Cervical ripening method: none Induction method: none Delivery monitor: external FHT and external uterine Route of delivery: Episiotomy description: None L&D Laceration Description: None Quantitative Blood Loss: 275 Anesthesia Type: Epidural Narrative: Due to cat II FHR and > 2 hours with minimal change in anterior lip, pushing was initiated at AL/C/0. Coaching, encouragement and strong maternal efforts led to steady descent of vertex with more reassuring Cat II FHR tracing throughout a 2 hour second stage. NSVB of a viable baby boy in DIONTE position with a double tight nuchal cord and right arm cord. was sommersaulted towards left maternal leg and unwound from cord, then placed on maternal abdomen for drying and stimulation. Apgars 7/9. 30 units of pitocin in 500mL LR was initiated at 300mL/hr for AMTSL. After cessation of pulsation, the cord was double clamped by CNM and cut by patient's sister. Cord blood sample was collected and sent. Gentle cord traction and maternal pushing led to spontaneous, Schultze delivery of an apparently intact placenta, membranes and 3VC. Fundus immediately firm and bleeding minimal. Vagina and perineum inspected and intact. QBL 275mL. Both mother and baby stable and skin to skin as I left the room. [place] Baby 1: Infant gender: Male Presentation: vertex Position: Right Occiput Anterior Placenta delivery description: Spontaneous and Normal Configuration Cord Vessel Description: 3 Vessels, Nuchal Cord (x2), Tight (sommersaulted) and Around Body x1 (right arm) score (1 min): 7 score (5 min): 9 weight: 3.445 kg Plan for aftercare: Routine care
[2024-05-04] MEDS: KETOROLAC 30 MG/ML VIAL IV (23:10)
[2024-05-04] MEDS: OXYTOCIN PREMIX 30 UNIT/500 ML PLAST..BAG 200 UNIT IV (23:10)
[2024-05-04] MEDS: ACETAMINOPHEN 325 MG TABLET 650 MG PO (23:11)
[2024-05-05] MEDS: DERMOPLAST SPRAY 20% 60 ML 1 SPRAY TOP (05:18)
[2024-05-05] MEDS: LANOLIN OINT 7 GM 1 APPLIC TOP (05:18)
[2024-05-05] MEDS: ACETAMINOPHEN 325 MG TABLET 650 MG PO ×3 (05:19→22:47)
[2024-05-05] MEDS: IBUPROFEN 600 MG TABLET PO ×2 (05:19→17:49)
[2024-05-05] MEDS: WITCH HAZEL/GLYCERIN PADS 1 EACH TOP (05:19)
[2024-05-05 09:03] LABS: Add Manual Diff / Slide Review NO; Basophils Absolute Auto 0 /uL (0-100); Basophils Percent Auto 0.1 % (0-2); Eosinophils Absolute Auto 200 /uL (0-450); Eosinophils Percent Auto 1.6 % (2-4); Hematocrit 30.5 % (36-46); Hemoglobin 10.5 g/dL (12.0-16.0); Lymphocytes Absolute Auto 1600 /uL (1100-4500); Lymphocytes Percent Auto 11.9 % (25-40); Mean Corpuscular HGB Conc 34.2 % (30-36); Mean Corpuscular Hemoglobin 32.7 PG (26-34); Mean Corpuscular Volume 95.4 fL (80-100); Monocytes Absolute Auto 900 /uL (0-900); Monocytes Percent Auto 6.4 % (3-14); Neutrophils Absolute Auto 10700 /uL (1500-7000); Platelet Count 153 X10^3/uL (150-400); Red Cell Distribution Width 13.7 % (11.6-14.8); White Blood Cell Count 13.4 X10^3/uL (4.5-11.0)
--- NOTE | 2024-05-05 18:21 | PM.OBPN.1 ---
Subjective - OB Subjective Interval history: PPD1: Stable s/p NSVB with no lacerations. Voiding ambulating and independently. Has been afebrile since giving . Pain is well controlled with PO medication. Vaginal bleeding is light, without clots. She feels comfortable staying tonight and going home in the morning. Exam Vital Signs (past 8 hours): BP 120/69, HR 70, T 97.3F Temporal Other: Fundus firm @ u-1, lochia light, perineum intact. Objective Labs 05/05/24 08:53 Labs: Laboratory Results - last 24 hr 05/04/24 05/05/24 21:20 08:53 WBC 15.0 H 13.4 H RBC 3.74 L 3.20 L Hgb 12.0 10.5 L Hct 35.5 L 30.5 L MCV 94.9 95.4 MCH 32.1 32.7 MCHC 33.8 34.2 RDW 13.5 13.7 Plt Count 192 153 Neut % (Auto) 87.5 H 80.0 H Lymph % (Auto) 7.[address] [place] % (Auto) 4.8 6.4 Eos % (Auto) 0.1 L 1.6 L Baso % (Auto) 0.1 0.1 Neut # (Auto) 16599 H 48317 H Lymph # (Auto) [address] [place] # (Auto) 700 900 Eos # (Auto) 0 200 Baso # (Auto) 0 0 Assessment & Plan Assessment and Plan (1) PROM (premature rupture of membranes): Status: Acute (2) Encounter for full-term uncomplicated delivery: Status: Acute Plan day: 1 plan OB: routine care Time-Based Coding :: [TOTAL MINUTES] spent with patient and on the chart (including review of chart, obtaining history, exam, reviewing outside data, placing orders, documenting exam and treatment plan, and counseling patient) on [DATE].
[2024-05-06] MEDS: IBUPROFEN 600 MG TABLET PO (03:32)
--- NOTE | 2024-05-06 04:36 | P.DS_ITS ---
Discharge Providers Provider Date of admission: 05/04/24 02:02 Discharge Date: 05/06/24 Primary care physician: Helga Pereira DO Consults: 05/05/24 22:13 Consult to Hearing Healthcare Practitioner Routine Comment: Discharge provider: Dina Burgess CNM Summary Hospital Course Date Patient Seen: 05/06/24 Time Patient Seen: 04:37 Diagnoses: O80 Hospital Course: Late Term PROM resulted in NSVB with no lacerations. Elevated temp @ 100.2 and WBC of 15 immediately prior to giving at 23 hour from time of ROM. PPD2: Voiding ambulating and independently. Has been afebrile since giving , no antibiotics given. Pain is well controlled with PO medication. Vaginal bleeding is light, without clots. She feels ready for discharge to home this morning. Peripartum Data Delivery Method: Natural Vaginal Laceration Description: None Episiotomy description: None Procedures: O80 complications: none [place] 1: Gender: Male Disposition of : home Discharge Diagnosis (1) PROM (premature rupture of membranes): Status: Acute (2) Encounter for full-term uncomplicated delivery: Status: Acute Problem Details: Routine PP course Status at Discharge Cognitive/behavioral status at discharge: oriented and calm Functional status at discharge: independent ambulation Overall status at discharge: patient is progressing back to baseline Time Spent with Patient Time attestation: Total time spent providing and/or coordinating discharge services: Objective Labs 05/05/24 08:53 Labs: Laboratory Results - last 24 hr 05/05/24 08:53 WBC 13.4 H RBC 3.20 L Hgb 10.5 L Hct 30.5 L MCV 95.4 MCH 32.7 MCHC 34.2 RDW 13.7 Plt Count 153 Neut % (Auto) 80.0 H Lymph % (Auto) 11.9 L [place] % (Auto) 6.4 Eos % (Auto) 1.6 L Baso % (Auto) 0.1 Neut # (Auto) 86155 H Lymph # (Auto) 1600 [place] # (Auto) 900 Eos # (Auto) 200 Baso # (Auto) 0 Exam Vital Signs (past 8 hours): BP 123/80, HR 62, RR 18, T 98.3F Oral Other: Fundus firm @ u-1, lochia light, perineum intact Discharge Plan Discharge Plan Patient Disposition: Home Discharge orders & Medications Prescriptions: New ibuprofen 600 mg Tablet 600 mg PO Q6HR PRN (Reason: Pain, Mild (1-3)) 14 Days Qty: 60 0RF Continued clindamycin phosphate 1 % lotion 1 applic topical BID levothyroxine 75 mcg capsule 75 mcg PO .qod Follow up/Referrals: Helga Pereira DO [Primary Care Provider] - Dina Burgess CNM [Advanced Customer Pricing Manager] - (2wk follow-up phone call 05/19/2024 @ 0130 6wk follow-up office visit 06/16/2024 @ 1030) Diet/Activity/Treatments Diet: Diet as Tolerated and Regular Activity: bed rest x 2 weeks, no heavy lifting x 4 weeks, pelvic rest x 6 weeks Visit Report/Discharge Packet Instructions: Depression Stand Alone Forms: Patient Portal/API, Stroke Signs & Symptoms Discharge Data Primary Care Provider: Helga Pereira
== END 2024-05-06 12:17 | disposition home or self-care (01) | DRG 807 ==
PROVIDERS: Admitting Provider Nurse Practitioner Obstetrics & Gynecology; PCP Family Medicine; Referring Provider Nurse Practitioner Obstetrics & Gynecology; Visit Provider Nurse Practitioner Obstetrics & Gynecology
DX: O42.02 Full-term premature rupture of membranes, onset of labor within 24 hours of rupture (principal); Z37.0 Single live birth; O76 Abnormality in fetal heart rate and rhythm complicating labor and delivery; O48.0 Post-term pregnancy; Z3A.41 41 weeks gestation of pregnancy
CPT/HCPCS: 36415; 59050; 84112; 85025; 86850; 86900; 86901; G0379; J1885; J2590